=== PATIENT | female | born 1985 | race African-American/Black ===

== ENCOUNTER 2025-02-27 21:12 | Emergency (ER) | payer MEDICAID ==
[~2025-02-27] VITALS: Ht 170.2 cm; Wt 106.5 kg
[2025-02-27] MEDS: KETOROLAC TROMETH 60MG/2ML VIAL IM ONE (21:37)
--- NOTE | 2025-02-27 21:47 | ED.PDOC ---
Musculoskeletal HPI Comments 39y F who presents to the ED for chief complaint of LLE pain. Pt states 1x days prior, pt was walking and states she started to have L foot pain, numbness, and tingling. Pt states she started to have L foot swelling and states increasing pain while attempting to ambulate and came to the ED today for further evaluation. Pt in the ED, presents in wheelchair and states she has been having increasing throbbing pain radiating from foot up up the L knee. Pt states she was diabetic and states she stopped taking it 1x years prior after not liking the medication and states she was told by PCP she went from diabetic to pre- diabetic. Pt denies any recent long travel. Pt otherwise denies any other symptoms at this time. Vital signs were stable on arrival. Chief Complaint: Lower Extremity Time Seen by MD: 21:14 Reviewed Notes: Nurses Notes, Medications, Allergies Allergies: Coded Allergies: NO KNOWN ALLERGIES (Unverified , 02/27/25) Home Meds Active Scripts Gabapentin (Gabapentin) 300 Mg Cap, 1 CAP PO Q6HP PRN, #30 CAP 0 Refills Prov:MADDY SANTILLAN PAC 02/27/25 Ibuprofen Micronized (Ibuprofen) 800 Mg Tab, 800 MG PO Q8HP PRN, #20 TAB Prov:MADDY SANTILLAN PAC 02/27/25 Information Source: Patient Mode of Arrival: Wheelchair Location: Left Extremity Location: Foot, Leg Timing: Days Prehospital treatment: None Severity: Moderate Able to Move Extremity: Yes Bear Weight: Limited Pain: Moderate Hand Dominance: Right Mechanism: Spontaneous Circumstances: Spontaneous Onset of Symptoms: Spontaneous Symptoms: Swelling, Pain DVT Risk Factors: NONE Past Medical History PAST MEDICAL HISTORY: Denies Surgical History: Denies all surgeries LICENSED STAFF MFT History: No Pertinent LICENSED STAFF MFT History Family History Family History: Reviewed,noncontributory to illness, No family hx of Cancer, No family hx of DM, No family hx of Heart julien, No family hx of HTN, No family hx ofKidney julien, No family hx of Liver julien, No family hx of Lung julien, No family hx of Stroke Social History Smoker: Non-Smoker Alcohol: Denies ETOH Use Drugs: Denies Drug Use Lives In: Home Constitutional: denies: chills, diaphoresis, fatigue, fever, malaise, sweats, weakness, others EENTM: denies: blurred vision, double vision, ear bleeding, ear discharge, ear drainage, ear pain, ear ringing, eye pain, eye redness, hearing loss, mouth pain, mouth swelling, nasal discharge, nose bleeding, nose congestion, nose pain, photophobia, tearing, throat pain, throat swelling, voice changes, others Respiratory: denies: cough, hemoptysis, orthopnea, SOB at rest, shortness of breath, SOB with excertion, stridor, wheezing, others Cardiovascular: denies: chest pain, dizzy spells, diaphoresis, Dyspnea on exertion, edema, irregular heart beat, left arm pain, lightheadedness, palpitations, PND, syncope, others Gastrointestinal: denies: abdomen distended, abdominal pain, blood streaked bowels, constipated, diarrhea, dysphagia, difficulty swallowing, hematemesis, melena, nausea, poor appetite, poor fluid intake, rectal bleeding, rectal pain, vomiting, others Genitourinary: denies: abnormal vagina bleeding, burning, dyspareunia, dysuria, flank pain, frequency, hematuria, incontinence, pain, , vagina discharge, urgency, others Neurological: denies: dizziness, fainting, headache, left sided numbness, left sided weakness, numbness, paresthesia, pre-existing deficit, right sided numbness, right sided weakness, seizure, speech problems, tingling, tremors, weakness, others Musculoskeletal: reports: others (Left foot and lower leg pain); denies: back pain, gout, joint pain, joint swelling, muscle pain, muscle stiffness, neck pain Integumetry: denies: bruises, change in color, change in hair/nails, dryness, laceration, lesions, lumps, rash, wounds, others Allergic/Immunocompromised: denies: Difficulty Healing, Frequent Infections, Hives, Itching, others Hematologic/Lymphatic: denies: anemia, blood clots, easy bleeding, easy bruising, swollen glands, others Endocrine: denies: excessive hunger, excessive sweating, excessive thirst, excessive urination, flushing, intolerance to cold, intolerance to heat, unexp lained weight gain, unexplained weight loss, others Psychiatric: denies: anxiety, bipolar disorder, depression, hopeless, panic disorder, schizophrenia, sleepless, suicidal, others All Other Systems: Reviewed and Negative (see HPI) Physical Exam General Appearance: Moderate Distress ([id number] distress due to left foot and lower leg pain concerns.), Obese HEENT: Normal ENT Inspection, Pharynx Normal, TMs Normal Neck: Full Range of Motion, Non-Tender, Normal, Normal Inspection Respiratory: Chest Non-Tender, Lungs Clear, No Accessory Muscle Use, No Respiratory Distress, Normal Breath Sounds Cardiovascular: No Edema, No JVD, No Murmur, No Gallop, Normal Peripheral Pulses, Regular Rate/Rhythm Breast Exam: Deferred Gastrointestinal: No Organomegaly, Non Tender, No Pulsatile Mass, Normal Bowel Sounds, Soft Genitalia: Deferred Pelvic: Deferred Rectal: Deferred Extremities: Other (Who complains of pain in the dorsal aspect of the left foot over the 1st MTP region extending up into the ED anterior jo. Possible mild edema. No ecchymosis. No signs of trauma or infection.) Neurologic: Alert, Normal Affect, Normal Mood Cerebellar Function: NOT DONE Reflexes: NOT DONE Skin: Dry, Normal Color, Warm Lymphatic: No Adenopathy Was a procedure done? Was a procedure done?: No Differential Diagnosis EXT Differential Diagnosis: CHF, Deep Vein Thrombosis, Gout, DJD, Other (Lumbar radiculopathy, neuropathic pain concerns, peripheral neuropathy) Other Differential Diagnosis cellulitis, DVT, X-Ray, Labs, Meds, VS Vital Signs Date Time Temp Pulse Resp B/P (MAP) Pulse Ox O2 Delivery O2 Flow Rate FiO2 02/27/25 21:20 98.2 88 20 143/74 (97) 100 98.2 02/27/25 21:20 98.2 88 20 143/74 (97) 100 98.2 02/27/25 21:20 88 20 100 Room Air Lab Test 02/27/25 21:31 Range/Units White Blood Count 8.7 4.4-10.8 10^3/uL Red Blood Count 5.13 4.0-5.20 10^6/uL Hemoglobin 13.1 12.2-16.2 g/dL Hematocrit 38.0 36.0-46.0 % Mean Corpuscular Volume 74.2 L 80.0-100.0 fL Mean Corpuscular Hemoglobin 25.5 L 28.0-32.0 pg Mean Corpuscular Hemoglobin Concent 34.4 32.0-36.0 g/dL Red Cell Distribution Width 15.9 H 11.8-14.3 % Platelet Count 300 140-450 10^3/uL Mean Platelet Volume 7.1 6.9-10.8 fL Neutrophils (%) (Auto) 55.4 37.0-80.0 % Lymphocytes (%) (Auto) 37.9 10.0-50.0 % Monocytes (%) (Auto) 5.3 0.0-12.0 % Eosinophils (%) (Auto) 0.8 0.0-7.0 % Basophils (%) (Auto) 0.6 0.0-2.0 % Neutrophils # (Auto) 4.8 1.6-8.6 10 ^3/uL Lymphocytes # (Auto) 3.3 0.4-5.4 10 ^3/uL Monocytes # (Auto) 0.5 0-1.3 10 ^3/uL Eosinophils # (Auto) 0.1 0-0.8 10 ^3/uL Basophils # (Auto) 0.1 0-0.2 10 ^3/uL Nucleated Red Blood Cells 0.3 % Sodium Level 138 136-145 mmol/L Potassium Level 3.4 L 3.5-5.1 mmol/L Chloride Level 103 98-107 mmol/L Carbon Dioxide Level 23 20-31 mmol/L Anion Gap 12 5-15 Blood Urea Nitrogen 8 L 9-23 mg/dL Creatinine 0.65 0.550-1.02 mg/dL Glomerular Filtration Rate Calc 116 >90 mL/min BUN/Creatinine Ratio 12.3 10.0-20.0 Serum Glucose 133 H 74-106 mg/dL POC Glucose 152 H 70-106 mg/dl Uric Acid 6.9 3.1-7.8 mg/dL Calcium Level 9.7 8.7-10.4 mg/dL Current Medications Medications (Trade) Dose Ordered Sig/Gurdeep Route Start Time Stop Time Status Last Admin Ketorolac Tromethamine (Toradol Injection) 30 mg ONCE ONCE IM 02/27/25 21:30 02/27/25 21:31 DC 02/27/25 21:[address] [address] Ph: [phone] DIAGNOSTIC IMAGING Diagnostic Imaging Report : [id number] Signed PATIENT: PEDRITO BOLTON RACCT: [id number] UNIT: [id number] : 1985 LOC: ER ROOM / BED: / AGE / SEX: 39 / F ADM STATUS: REG ER SERVICE 24 ORDERING PHYSICIAN: MADDY SANTILLAN PAC PROCEDURE(s): LUMB2 - LUMBAR SPINE 3 VIEW REASON: Lumbar radiculopathy ORDER NUMBER(s): [id number], ACCESSION NUMBER(s): [id number] INDICATION: Lumbar radiculopathy COMPARISON: None TECHNIQUE: AP, lateral and L5-S1 spot radiographs of the lumbar spine. FINDINGS: There is normal alignment of the lumbar spine. The lumbar vertebral bodies and T10 to T12 are normal in appearance with no evidence of fracture. The intervertebral disc spaces are normal. Facet and SI joints appear unremarkable. IMPRESSION: No abnormality demonstrated. [place] [address] Ph: [phone] DIAGNOSTIC IMAGING Diagnostic Imaging Report : [id number] Signed PATIENT: PEDRITO BOLTON RACCT: [id number] UNIT: [id number] : 1985 LOC: ER ROOM / BED: / AGE / SEX: 39 / F ADM STATUS: REG ER SERVICE 24 ORDERING PHYSICIAN: MADDY SANTILLAN PAC PROCEDURE(s): LLDVT - LT Lower DVT REASON: DVT rule out ORDER NUMBER(s): [id number], ACCESSION NUMBER(s): [id number] Left lower extremity venous duplex Clinical History: DVT rule out Comparison: None Technique: Duplex Doppler evaluation of the deep venous system of the left lower extremity from the common femoral vein to the popliteal vein including color Doppler and spectral/pulsed waveform analysis was performed. Findings: The common femoral vein demonstrates appropriate compressibility and waveform variability. There is compressibility/patency of the great saphenous vein at the proximal thigh. The femoral vein demonstrates appropriate compressibility and waveform variability. The deep femoral vein demonstrates appropriate compressibility and waveform variability. The popliteal vein demonstrates appropriate compressibility and waveform variability. There is normal compressibility at the tibioperoneal trunk. Impression: No evidence of left femoropopliteal venous thrombosis. X-Ray, Labs, Meds, VS Comment All studies performed the ED were evaluated by me personally. Serum studies were unremarkable for any systemic concerns including unremarkable uric acid. Doppler ultrasound was unremarkable for any DVT formation and lumbar spine was unremarkable for any degenerative disc disease concerns. Unknown as the cause of the patient's acute peripheral neuropathy issues. Patient will need to follow up with the primary care provider for continued management. Time of 1ST Reevaluation: 23: Reevaluation 1ST: Improved Consultation: PCP Patient Education/Counseling: Diagnosis, Treatment Family Education/Counseling: Diagnosis, Treatment, No Family Present Sepsis Recent Procedure: No On Antibiotic Therapy: No Respiratory Rate >20: No Heart Rate >90: No Temp<36 C (96.8 F) or >38.3 C: No SBP <90 or MAP <65 mmHG: No New Acute Mental Status Change: No Is the patient on CPAP, BIPAP,: No IV fluid given: No Departure 1 Departure Time of Disposition: 23:24 Impression: Primary Impression: Peripheral neuropathy Disposition: HOME / SELF CARE / HOMELESS Condition: Stable Additional Instructions: Advised patient to follow up with the primary care provider for continued evaluation. Pain medication as needed. e-Prescriptions Gabapentin (Gabapentin) 300 Mg Cap 1 CAP PO Q6HP PRN, #30 CAP 0 Refills Prov: MADDY SANTILLAN PAC 02/27/25 Ibuprofen Micronized (Ibuprofen) 800 Mg Tab 800 MG PO Q8HP PRN, #20 TAB Prov: MADDY SANTILLAN PAC 02/27/25 Discharged With: Self, Relative Critical Care Note Critical Care Time?: No Stability Stability form required: No Heart Score Heart Score: Heart Score Response (Comments) Value History N/A 0 EKG N/A 0 Age N/A 0 Risk Factors N/A 0 Troponin N/A 0 Total 0 I personally scribed for MADDY SANTILLAN PAC ([email or web address]) on 02/27/25 at 21:47. Electronically submitted by Kathryn Field ([email or web address]). I personally scribed for PB MAYERS MD ([email or web address]) on 02/27/25 at 23:43. Electronically submitted by Brea RESENDIZ). MADDY SANTILLAN PAC Feb 27, 2025 21:47 PB MAYERS MD Feb 27, 2025 23:43
[2025-02-27 21:49] LABS: Hematocrit 38.0 % (36.0-46.0); Hemoglobin 13.1 g/dL (12.2-16.2); Mean Corpuscular Hemoglobin 25.5 pg (28.0-32.0); Mean Corpuscular Volume 74.2 fL (80.0-100.0); Nucleated Red Blood Cells % 0.3 %
[2025-02-27 21:56] LABS: Chloride 103 mmol/L (98-107); Sodium 138 mmol/L (136-145)
[2025-02-27 21:57] LABS: Anion Gap 12 (5-15); Calcium 9.7 mg/dL (8.7-10.4); Carbon Dioxide 23 mmol/L (20-31)
[2025-02-27 22:00] LABS: Potassium 3.4 mmol/L (3.5-5.1)
[2025-02-27 22:01] LABS: Uric Acid 6.9 mg/dL (3.1-7.8)
[2025-02-27 22:02] LABS: BUN/Creatinine Ratio 12.3 (10.0-20.0)
[2025-02-27 22:05] LABS: Blood Urea Nitrogen 8 mg/dL (9-23); Glucose 133 mg/dL (74-106)
--- NOTE | 2025-02-27 22:45 | DVH ---
INDICATION: Lumbar radiculopathy COMPARISON: None TECHNIQUE: AP, lateral and L5-S1 spot radiographs of the lumbar spine. FINDINGS: There is normal alignment of the lumbar spine. The lumbar vertebral bodies and T10 to T12 are normal in appearance with no evidence of fracture. The intervertebral disc spaces are normal. Facet and SI j oints appear unremarkable. IMPRESSION: No abnormality demonstrated.
--- NOTE | 2025-02-27 23:04 | DVH ---
Left lower extremity venous duplex Clinical History: DVT rule out Comparison: None Technique: Duplex Doppler evaluation of the deep venous system of the left lower extremity from the common femor al vein to the popliteal vein including color Doppler and spectral/pulsed waveform analysis was perfo rmed. Findings: The common femoral vein demonstrates appropriate compressibility and waveform variability. There is compressibility/patency of the great saphenous vein at the proximal thigh. The femoral vein demonstrates appropriate compressibility and waveform variability. The deep femoral vein demonstrates appropriate compressibility and waveform variability. The popliteal vein demonstrates appropriate compressibility and waveform variability. There is normal compressibility at the tibioperoneal trunk. Impression: No evidence of left femoropopliteal venous thrombosis.
[2025-02-27] MEDS ORDERED: IBUP-1455 PO (23:26)
[2025-02-27] MEDS ORDERED: GABA-1250 PO (23:26)
[2025-02-27 23:43] VITALS: BP 127/78; TEMP 98
[2025-02-27 23:48] VITALS: PULSE 87; RESP 16; O2SAT 95
== END 2025-02-27 23:54 | disposition home or self-care (01) ==
LOC: ER 21:12
DX: E11.42 Type 2 diabetes mellitus with diabetic polyneuropathy (principal); M54.16 Radiculopathy, lumbar region
CPT/HCPCS: 36415; 72100; 80048; 82947; 84550; 85025; 93971; 96372; 99285; J1885; 82962